=== PATIENT | male | born 1950 | race Caucasian/White ===

== ENCOUNTER 2017-04-06 08:00 | Outpatient (CLI) | payer OTHER ==
[2017-04-06 13:50] LABS: CHOL/HDL RATIO 4.1 (<5.0); CHOLESTEROL 254 mg/dL; HDL CHOLESTEROL 62 mg/dL; LDL/HDL RATIO 2.7 (<3.6); TRIGLYCERIDES 120 mg/dL; VLDL CHOLESTEROL 24 mg/dL
== END 2017-04-06 23:59 ==
LOC: LAB.R 08:00
PROVIDERS: ATTEND Internal Medicine
DX: Z00.00 Encounter for general adult medical examination without abnormal findings (principal); E78.2 Mixed hyperlipidemia; Z12.5 Encounter for screening for malignant neoplasm of prostate
CPT/HCPCS: 80061; 84153

== ENCOUNTER 2017-06-06 10:35 | Outpatient (CLI) | payer OTHER | END 2017-06-06 10:36 | disposition home or self-care (01) | LOC: SC 10:35 | PROVIDERS: ATTEND Internal Medicine Pulmonary Disease | DX: G47.30 Sleep apnea, unspecified (principal); R06.83 Snoring; R09.89 Other specified symptoms and signs involving the circulatory and respiratory systems | CPT/HCPCS: 99203; 99212 ==

== ENCOUNTER 2017-08-22 10:45 | Outpatient (CLI) | payer OTHER, MEDICARE | END 2017-08-22 10:46 | disposition home or self-care (01) | LOC: SC 10:45 | PROVIDERS: ATTEND Internal Medicine Pulmonary Disease | DX: G47.33 Obstructive sleep apnea (adult) (pediatric) (principal) | CPT/HCPCS: 99212; 99213 ==

== ENCOUNTER 2017-09-09 12:13 | Emergency (ER) | payer OTHER, MEDICARE ==
--- NOTE | 2017-09-09 13:29 | ED Physician Documentation ---
PD HPI LOWER EXT INJURY - Stated complaint Stated Complaint: LT CALF PX - Chief complaint Chief Complaint: Ext Problem - History obtained from History obtained from: Patient - History of Present Illness PD HPI LOW EXT INJURY LOCATION: Left, Calf Type of injury: Other (No injury) Where injury occurred: Home Timing - onset: Today Timing - details: Waxing and waning Associated symptoms: No: Weakness, Numbness, Swelling Similar symptoms before: Has not had sx before - Additional information Additional information: The patient is a 66-year-old male who presents with left calf pain. His pain started suddenly when up walking to the bathroom during the night. It improved with rest, but then nearly dropped him to his knees when trying to ambulate this morning. He denies any recent injury or long distance travel. He denies history of similar symptoms in the past. His pain is now much better than it was earlier this morning. He denies numbness or weakness. Review of Systems Constitutional: denies: Fever Nose: denies: Congestion Cardiac: denies: Chest pain / pressure, Palpitations Respiratory: denies: Dyspnea, Cough GI: denies: Abdominal Pain, Nausea, Vomiting Skin: denies: Rash Musculoskeletal: reports: Extremity pain (left calf). denies: Neck pain, Back pain Neurologic: denies: Focal weakness, Numbness, Headache PD PAST MEDICAL HISTORY - Past Medical History Past Medical History: Yes Cardiovascular: Murmur Respiratory: None Endocrine/Autoimmune: None GI: Colon polyps, Hemorrhoids : None HEENT: None Psych: None Musculoskeletal: None Derm: Other - Past Surgical History Past Surgical History: No General: Colonoscopy - Present Medications Home Medications: Ambulatory Orders Medication Instructions Recorded Confirmed Ibuprofen 1 tab PO Q6HR PRN 03/08/16 09/09/17 - Allergies Allergies/Adverse Reactions: Allergies Allergy/AdvReac Type Severity Reaction Status Date / Time Penicillins Allergy Anaphylaxis Verified 02/12/16 11:35 - Social History Does the pt smoke?: No Smoking Status: Never smoker Does the pt drink ETOH?: Yes Does the pt have substance abuse?: No - Immunizations Immunizations are current?: Yes - POLST Patient has POLST: No PD ED PE NORMAL - Vitals Vital signs reviewed: Yes (initially hypertensive.) - General General: Alert and oriented X 3, Well developed/nourished - HEENT HEENT: Atraumatic - Cardiac Cardiac: RRR, No murmur - Respiratory Respiratory: No respiratory distress, Clear bilaterally - Abdomen Abdomen: Soft, Non tender - Back Back: No CVA TTP - Derm Derm: No rash - Extremities Extremities: No edema, Other (There is mild tenderness to palpation along the medial aspect of the left calf, adjacent to the medial tibia. There is no appreciable swelling of the calf. Distal neurovascular is intact.) - Neuro Neuro: Alert and oriented X 3, No motor deficit, No sensory deficit Results - Vitals Vitals: Oxygen O2 Source Room air - Rads (name of study) Duplex U/S left LE Radiology: Prelim report reviewed, EMP read contemporaneously, See rad report ( No DVT) PD MEDICAL DECISION MAKING - ED course Complexity details: reviewed results, re-evaluated patient, considered differential, d/w patient, d/w family ED course: The patient's presentation is most consistent with muscle strain involving the left calf. Venous duplex ultrasound reveals no evidence of DVT. His examination does not suggest Gilbert's cyst. I discussed with him and his the results of the ultrasound, symptomatic treatment and outpatient follow-up, as well as potentially worrisome signs or symptoms that should prompt reevaluation in the emergency department. Departure - Departure Disposition: 01 Home, Self Care Clinical Impression: Pain of lower extremity Qualifiers: Laterality: left Qualified Code(s): M79.605 - Pain in left leg Condition: Stable Instructions: ED Muscle Pain Leg Cramps Follow-Up: Janes Bautista MD [Primary Care Provider] - Comments: Keep your left leg elevated as much the time as possible for the next 2 or 3 days. You can use ibuprofen, up to 800 mg 3 times daily for its anti-inflammatory effect. Follow up with your primary physician, or return to the emergency department if you develop increasing pain or swelling in her leg, or otherwise worsening symptoms. Discharge Date/Time: 09/09/17 15:31
[2017-09-09 15:32] VITALS: BP 144/85
--- NOTE | 2017-09-09 17:09 | Ultrasound Report ---
LEFT LEG VENOUS DUPLEX: 09/09/2017 CLINICAL INDICATION: Left calf pain. TECHNIQUE: Real-time sonographic vascular imaging was performed by the flower cutter through the left lower extremity utilizing both color flow and Doppler spectral analysis. Multiple passenger service representative sta tic images were saved for review. FINDINGS: A left lower extremity venous sonogram is performed revealing the common femoral, superfic ial femoral, profunda femoris, and popliteal veins to be adequately visualized without intraluminal d efects. There is normal venous compression, augmentation, phasicity, and spontaneity of venous flow. In the calf, the visualized more cephalad portions of posterior tibial and peroneal veins are gross ly compressible, without filling defects. IMPRESSION: NO EVIDENCE OF DEEP VENOUS THROMBOSIS. JOB #: [id number] EXT JOB #:[id number]
== END 2017-09-09 15:31 | disposition home or self-care (01) ==
LOC: ED 12:13
DX: M79.662 Pain in left lower leg (principal); Z86.010 Personal history of colon polyps
CPT/HCPCS: 99282; 99283

== ENCOUNTER 2017-10-24 09:26 | Outpatient (CLI) | payer OTHER, MEDICARE | END 2017-10-24 09:27 | disposition home or self-care (01) | LOC: SC 09:26 | PROVIDERS: ATTEND Internal Medicine Pulmonary Disease | DX: G47.33 Obstructive sleep apnea (adult) (pediatric) (principal) | CPT/HCPCS: 99212; 99213 ==

== ENCOUNTER 2017-11-28 13:23 | Outpatient (CLI) | payer OTHER, MEDICARE | END 2017-11-28 13:24 | disposition home or self-care (01) | LOC: SC 13:23 | PROVIDERS: ATTEND Internal Medicine Pulmonary Disease | DX: Z53.9 Procedure and treatment not carried out, unspecified reason (principal) ==

== ENCOUNTER 2017-12-05 13:50 | Outpatient (CLI) | payer MEDICARE, OTHER | END 2017-12-05 13:51 | disposition home or self-care (01) | LOC: SC 13:50 | PROVIDERS: ATTEND Internal Medicine Pulmonary Disease | DX: G47.33 Obstructive sleep apnea (adult) (pediatric) (principal) | CPT/HCPCS: 99213; G0463; 99212 ==

== ENCOUNTER 2018-05-10 10:31 | Outpatient (CLI) | payer MEDICARE, OTHER ==
[2018-05-10 11:17] LABS: ALBUMIN 4.3 g/dL (3.2-5.5); ALBUMIN/GLOBULIN RATIO 1.3 (1.0-2.2); ALKALINE PHOSPHATASE 66 IU/L (42-121); ALT ALANINE AMINOTRANSFERASE 23 IU/L (10-60); AST ASPARTATE AMINOTRANSFERASE 22 IU/L (10-42); BILIRUBIN,TOTAL 1.1 mg/dL (0.2-1.0); BUN - BLOOD UREA NITROGEN 23 mg/dL (6-20); CALCIUM 9.6 mg/dL (8.5-10.3); CARBON DIOXIDE - CO2 24 mmol/L (21-32); CHLORIDE 106 mmol/L (101-111); CHOL/HDL RATIO 3.9 (<5.0); CHOLESTEROL 228 mg/dL; CREATININE 0.9 mg/dL (0.6-1.2); GFR - MDRD 84 (>89); GLUCOSE 107 mg/dL (70-100); HDL CHOLESTEROL 58 mg/dL; LDL CHOLESTEROL,CALCULATED 148 mg/dL; LDL/HDL RATIO 2.6 (<3.6); SODIUM 139 mmol/L (135-145); TOTAL PROTEIN 7.5 g/dL (6.7-8.2); VLDL CHOLESTEROL 22 mg/dL
[2018-05-11 13:48] LABS: HEPATITIS C ANTIBODY NON-REACTIVE (NON-REACTIVE)
== END 2018-05-10 10:32 | disposition home or self-care (01) ==
LOC: LAB 10:31
PROVIDERS: ATTEND Internal Medicine
DX: Z72.89 Other problems related to lifestyle (principal); Z79.899 Other long term (current) drug therapy
CPT/HCPCS: 36415; 80053; 80061; 83721; 86803

== ENCOUNTER 2018-11-08 14:23 | Emergency (ER) | payer MEDICARE, OTHER ==
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
[2018-11-08] MEDS ORDERED: LIDOCAINE MPF 2%-EPI 1:200000 20 ML VIAL SUBQ STA (16:45)
[2018-11-08] MEDS ORDERED: IBUPROFEN 600 MG TABLET PO STA (16:45)
[2018-11-08] MEDS ORDERED: TETANUS/DIPHTHERIA/PERTUSSIS 0.5 ML SYRINGE IM ONE (16:46)
[2018-11-08 17:29] VITALS: BP 163/101
[2018-11-08] MEDS ORDERED: BACITRACIN OINT TOP ONE (17:32)
== END 2018-11-08 17:39 | disposition home or self-care (01) ==
LOC: ED 14:23
DX: S61.412A Laceration without foreign body of left hand, initial encounter (principal); W29.8XXA Contact with other powered hand tools and household machinery, initial encounter; Y92.009 Unspecified place in unspecified non-institutional (private) residence as the place of occurrence of the external cause
CPT/HCPCS: 12001; 90471; 99282; 99283

== ENCOUNTER 2018-11-15 14:33 | Outpatient (CLI) | payer MEDICARE, OTHER | END 2018-11-15 14:34 | disposition home or self-care (01) | LOC: SC 14:33 | PROVIDERS: ATTEND Nurse Practitioner Family | DX: G47.33 Obstructive sleep apnea (adult) (pediatric) (principal) | CPT/HCPCS: 99214; G0463; 99212 ==

== ENCOUNTER 2018-12-04 08:00 | Outpatient (CLI) | payer MEDICARE, OTHER ==
[2018-12-04 16:01] LABS: HB2 TOTAL 17.2 g/dL; HEMOGLOBIN A1C 0.52 g/dL; HEMOGLOBIN A1C % 4.9 % (4.6-6.2)
== END 2018-12-04 23:59 | disposition home or self-care (01) ==
LOC: LAB.R 08:00
PROVIDERS: ATTEND Internal Medicine
DX: E78.5 Hyperlipidemia, unspecified (principal); R73.9 Hyperglycemia, unspecified
CPT/HCPCS: 82947; 83036; 83615

== ENCOUNTER 2018-12-19 15:32 | Outpatient (CLI) | payer MEDICARE, OTHER ==
[2018-12-19 15:56] LABS: CREATININE 0.9 mg/dL (0.6-1.2)
== END 2018-12-19 15:33 | disposition home or self-care (01) ==
LOC: LAB 15:32
PROVIDERS: ATTEND Physician Assistant Medical
DX: B35.1 Tinea unguium (principal); Z79.899 Other long term (current) drug therapy
CPT/HCPCS: 36415; 82565; 84450; 84460

== ENCOUNTER 2019-07-27 11:57 | Outpatient (CLI) | payer MEDICARE, OTHER ==
[2019-07-27 12:38] LABS: ALBUMIN 4.4 g/dL (3.2-5.5); ALBUMIN/GLOBULIN RATIO 1.5 (1.0-2.2); ALKALINE PHOSPHATASE 62 IU/L (42-121); ALT ALANINE AMINOTRANSFERASE 37 IU/L (10-60); AST ASPARTATE AMINOTRANSFERASE 28 IU/L (10-42); BUN - BLOOD UREA NITROGEN 26 mg/dL (6-20); CALCIUM 9.3 mg/dL (8.5-10.3); CARBON DIOXIDE - CO2 24 mmol/L (21-32); CHLORIDE 106 mmol/L (101-111); CHOL/HDL RATIO 2.6 (<5.0); CHOLESTEROL 171 mg/dL; GFR - MDRD 75 (>89); GLUCOSE 113 mg/dL (70-100); HDL CHOLESTEROL 65 mg/dL; LDL CHOLESTEROL,CALCULATED 97 mg/dL; LDL/HDL RATIO 1.5 (<3.6); SODIUM 139 mmol/L (135-145); TOTAL PROTEIN 7.4 g/dL (6.7-8.2); VLDL CHOLESTEROL 9 mg/dL
== END 2019-07-27 11:58 | disposition home or self-care (01) ==
LOC: LAB 11:57
PROVIDERS: ATTEND Nurse Practitioner
DX: E78.5 Hyperlipidemia, unspecified (principal)
CPT/HCPCS: 36415; 80053; 80061; 83721

== ENCOUNTER 2019-10-23 13:22 | Outpatient (CLI) | payer MEDICARE, OTHER ==
[2019-10-23 14:10] VITALS: BP 156/80
--- NOTE | 2019-10-23 14:10 | SLEEP CARE CONSULTATION ---
Information from patient questionnaire entered by Elsa Austin. I have reviewed and concur with the information entered by Elsa Austin. This document represents the service I personally performed and the decisions made by me, Saida Mccullough, RN, MSN, CUSHION PADDER. History of Present Illness Previous diagnosis: Moderate, Obstructive Sleep Apnea-Hypopnea Syndrome AHI: 26.3 Reason for follow up: annual Accompanied by: Spouse Equipment type: CPAP Equipment obtained from: [facility] Mask style: Nasal Mask brand: Respironics Backup mask available: No (keep current mask as spare when replaced) Last cushion change: 2 weeks ago Prior sleep studies: Yes CPAP Compliance Data - Data Reviewed with Patient Average duration of nightly device use: 9h 2m Compliance rate %: 90.6 Current pressure setting (cmH2O): 12-16 Humidity settin Heated hose settin Average residual AHI: 4.1 Average large leak: 43s Subjective Missed days of use due to: reports: travel (no access to electricity ), other Patient concerns: reports: dry mouth, nose, throat (weekly ), other (oral venting noted nightly by spouse). denies: aerophagia, mask discomfort, air blowing in eyes, mask leak noise, condensation in mask/hose, nasal congestion, epistaxis Observed to snore while using device: No Current pressure setting perceived as: comfortable On therapy, patient: reports: sleeping better (as observed by spouse as well. ), more rested overall (slightly) Initial [place] Sleepiness Scale score: 12 Current [place] Sleepiness Scale score: 11 Allergies and Home Medications Known drug allergies: Yes (? penicillin) Home medication list reviewed: Yes Allergy and home medication list: Medication Name (generic/name brand) Strength & Dosage Ibuprofen 2 am and 2 pm Josephine 2 daily in morning. Stool softener 2 daily in AM rovastatin daily in AM Review of Systems Review of systems same as previous: Yes Physical Exam Blood Pressure: 156/80 Cuff size: long Heart Rate: 88 O2 Saturation: 96 Height: 6 ft 1 in Weight: 244 lb (with boots ) Body Mass Index: 32.1 BMI Classification: Obesity Class 1 Impression and Plan 1. Obstructive Sleep Apnea-Hypopnea Syndrome, moderate, with good treatment compliance and good apnea control. On CPAP therapy, the patient has better sleep quality noted by patient and spouse and is slightly rested overall. To reduce oral venting, I will change pressure to 90% of [id number]. Patient advised to cont act me if uncomfortable. I also ordered a chin strap if needed. In addition we talked about his weight. He has lost 4 pounds of the 20 he gained last year. We again reviewed weight relationship to his apnea risk and CPAP pressure. He is advised to lose weight for overall health as now BMI class 1 obesity at 32. Methods to achieve are diet modification to healthy content ( whole foods - reduction of refined foods) and portion control. Symptoms to report for pressure adjustment as he loses weight. Evidently he needs an updated order for his supplies and that was done. Patient's apnea severity and rationale for treatment to reduce apnea, improve sleep quality and reduce cardiovascular and cerebrovascular events was reviewed. I also reviewed the benefit of consistent device use of CPAP for hypertension. Since apnea more severe supine, if unable to use CPAP, he is to avoid supine sleep with pillow positioning. * * Change CPAP pressure to 14 cmH2O * chin strap fitting if continued oral venting * Update supplies * Notify me if snoring with mask or feeling that the pressure is too much or too little * Attempt to lose weight * Return for follow up in 1 year, or sooner if concerns arise I spent 100% of this 30 minute visit face to face with the patient with greater than 50% of this was spent time counseling the patient and coordination of care.
== END 2019-10-23 13:23 | disposition home or self-care (01) ==
LOC: SC 13:22
PROVIDERS: ATTEND Nurse Practitioner Family
DX: G47.33 Obstructive sleep apnea (adult) (pediatric) (principal); E66.9 Obesity, unspecified; Z68.32 Body mass index [BMI] 32.0-32.9, adult
CPT/HCPCS: 99214; G0463; 99212

== ENCOUNTER 2020-10-24 10:01 | Outpatient (CLI) | payer MEDICARE, OTHER ==
--- NOTE | 2020-10-24 09:51 | SLEEP CARE CONSULTATION ---
Information from patient questionnaire entered by Yadira Justin. I have reviewed and concur with the information entered by Yadira Justin. This document represents the service I personally performed and the decisions made by me, Saida Mccullough, RN, MSN, COMMERCIAL SALES MANAGER. History of Present Illness Service Date and Time: 10/24/2020929 Previous diagnosis: Moderate, Obstructive Sleep Apnea-Hypopnea Syndrome AHI: 26.3 (in 2017) Reason for follow up: annual (last seen 08/2019) Equipment type: CPAP Equipment obtained from: [facility] (getting supplies as needed) Mask style: Nasal Mask brand: Respironics Backup mask available: Yes (has old mask for spare ) Last cushion change: 2 days Prior sleep studies: Yes Year and Where: 2017 - [facility] Type of Sleep Study: Home sleep study CPAP Compliance Data - Data Reviewed with Patient Average duration of nightly device use: 7 hr 10 min Compliance rate %: 81.1 (180 days) Current pressure setting (cmH2O): 14 Humidity settin Heated hose settin Average residual AHI: 2.6 Average large leak: 4 min 56 sec Subjective Patient concerns: reports: dry mouth, nose, throat (occasional dry mouth at most once a week ). denies: aerophagia, mask discomfort, air blowing in eyes, mask leak noise, condensation in mask/hose, nasal congestion, epistaxis, other Observed to snore while using device: No Current pressure setting perceived as: comfortable On therapy, patient: reports: sleeping better, awakening more refreshed, being more awake and alert during the day, more rested overall. denies: drowsiness while driving Initial [place] Sleepiness Scale score: 12 (in 2017) Current [place] Sleepiness Scale score: 2 Allergies and Home Medications Known drug allergies: Yes Home medication list reviewed: No (no changes stated ) Review of Systems Review of systems same as previous: Yes (no changes stated) Physical Exam Height: 6 ft 1 in Impression and Plan 1. Obstructive Sleep Apnea-Hypopnea Syndrome, moderate, with good treatment compliance and good apnea control. On CPAP therapy, the patient has better sleep quality and is more rested overall. Patient is pleased with benefit of CPAP use. He was trying to lose weight at his last annual. But he is unaware of current weight. However, his spouse has commented she feels he is losing weight and his pants are now feeling looser. I discussed the risks of obesity and advised him to continue to lose weight. I discussed how significant weight loss could reduce his CPAP pressure requirements with rationale discussed. Symptoms to report to change CPAP pressure reviewed. Patient's apnea severity and rationale for treatment to reduce apnea, improve sleep quality and reduce cardiovascular and cerebrovascular events was reviewed. I also reviewed the benefit of consistent device use of CPAP for hypertension. Since patient has more severe apnea in govea pine position, patient advised to avoid supine sleep with pillow positioning if unable to use CPAP while ill or if without electricity to reduce apnea risk. * Continue auto CPAP pressure at 14 cmH2O * Notify me if snoring with mask or feeling that the pressure is too much or too little * Continue to lose weight * Call this office if any problems using CPAP * Return for follow up in 1 year , or sooner if concerns arise Visit Type: Telehealth Phone (using [employer]) Patient Location: Home Location of Provider: Home Patient agrees and consents to this telehealth visit type: Yes Patient agrees to have their insurance billed: Yes Time Spent with Patient (minutes): 12 Provider Statement: I spent 100% of the Telehealth Phone Call with the patient with greater than 50% spent counseling the patient and coordination of care.
== END 2020-10-24 10:02 | disposition home or self-care (01) ==
LOC: SC 10:01
PROVIDERS: ATTEND Nurse Practitioner Family
DX: G47.33 Obstructive sleep apnea (adult) (pediatric) (principal)

== ENCOUNTER 2021-03-04 11:31 | Outpatient (CLI) | payer MEDICARE, OTHER ==
[2021-03-04 11:52] LABS: BASOPHILS % (AUTO) 0.6 %; EOSINOPHILS # (AUTO) 0.2 10^3/uL (0.0-0.7); EOSINOPHILS % (AUTO) 2.9 %; HCT - HEMATOCRIT 44.9 % (42.0-52.0); HGB - HEMOGLOBIN 15.5 g/dL (14.0-18.0); LYMPHOCYTES # (AUTO) 1.5 10^3/uL (1.5-3.5); MEAN CORPUSCULAR HEMOGLOBIN 32.8 pg (27.0-31.0); MEAN CORPUSCULAR HGB CONC 34.5 g/dL (32.0-36.0); MEAN CORPUSCULAR VOLUME 94.9 fL (80.0-94.0); MEAN PLATELET VOLUME 8.7 fL (7.4-11.4); MONOCYTES # (AUTO) 0.4 10^3/uL (0.0-1.0); MONOCYTES % (AUTO) 6.5 %; NEUTROPHILS % (AUTO) 65.4 %; PLT - PLATELET COUNT 272 10^3/uL (130-450); RED BLOOD COUNT 4.73 10^6/uL (4.70-6.10); RED CELL DISTRIBUTION WIDTH 12.1 % (12.0-15.0); WHITE BLOOD COUNT 6.2 x10^3/uL (4.8-10.8)
[2021-03-04 12:31] LABS: ALBUMIN 4.6 g/dL (3.2-5.5); ALBUMIN/GLOBULIN RATIO 1.7 (1.0-2.2); ALKALINE PHOSPHATASE 60 IU/L (42-121); ALT ALANINE AMINOTRANSFERASE 36 IU/L (10-60); AST ASPARTATE AMINOTRANSFERASE 22 IU/L (10-42); BILIRUBIN,TOTAL 1.2 mg/dL (0.2-1.0); BUN - BLOOD UREA NITROGEN 25 mg/dL (6-20); CALCIUM 9.9 mg/dL (8.5-10.3); CARBON DIOXIDE - CO2 25 mmol/L (21-32); CHLORIDE 108 mmol/L (101-111); CHOL/HDL RATIO 2.9 (<5.0); CHOLESTEROL 171 mg/dL; CREATININE 0.9 mg/dL (0.6-1.2); GFR - MDRD 84 (>89); GLUCOSE 108 mg/dL (70-100); HDL CHOLESTEROL 59 mg/dL; LDL CHOLESTEROL,CALCULATED 93 mg/dL; LDL/HDL RATIO 1.6 (<3.6); MAGNESIUM 2.1 mg/dL (1.7-2.8); POTASSIUM 4.4 mmol/L (3.5-5.0); SODIUM 141 mmol/L (135-145); TOTAL PROTEIN 7.3 g/dL (6.7-8.2); TRIGLYCERIDES 93 mg/dL; VLDL CHOLESTEROL 19 mg/dL
== END 2021-03-04 11:32 | disposition home or self-care (01) ==
LOC: LAB 11:31
PROVIDERS: ATTEND Nurse Practitioner
DX: R73.9 Hyperglycemia, unspecified (principal); E78.5 Hyperlipidemia, unspecified; R03.0 Elevated blood-pressure reading, without diagnosis of hypertension; G47.33 Obstructive sleep apnea (adult) (pediatric); Z12.5 Encounter for screening for malignant neoplasm of prostate; R25.2 Cramp and spasm
CPT/HCPCS: 36415; 80053; 80061; 83735; 85025; G0103; 83721; 84153

== ENCOUNTER 2022-01-13 10:28 | Outpatient (CLI) | payer MEDICARE ==
[2022-01-13 10:46] LABS: BASOPHILS % (AUTO) 0.6 %; EOSINOPHILS # (AUTO) 0.1 10^3/uL (0.0-0.7); EOSINOPHILS % (AUTO) 2.7 %; HCT - HEMATOCRIT 43.9 % (42.0-52.0); HGB - HEMOGLOBIN 15.1 g/dL (14.0-18.0); LYMPHOCYTES # (AUTO) 1.3 10^3/uL (1.5-3.5); LYMPHOCYTES % (AUTO) 24.3 %; MEAN CORPUSCULAR HEMOGLOBIN 32.7 pg (27.0-31.0); MEAN CORPUSCULAR HGB CONC 34.4 g/dL (32.0-36.0); MEAN PLATELET VOLUME 8.5 fL (7.4-11.4); MONOCYTES # (AUTO) 0.4 10^3/uL (0.0-1.0); MONOCYTES % (AUTO) 7.8 %; NEUTROPHILS # (AUTO) 3.4 10^3/uL (1.5-6.6); NEUTROPHILS % (AUTO) 64.2 %; PLT - PLATELET COUNT 266 10^3/uL (130-450); RED BLOOD COUNT 4.62 10^6/uL (4.70-6.10); RED CELL DISTRIBUTION WIDTH 12.2 % (12.0-15.0); WHITE BLOOD COUNT 5.2 x10^3/uL (4.8-10.8)
[2022-01-13 11:06] LABS: ALBUMIN 4.2 g/dL (3.2-5.5); ALBUMIN/GLOBULIN RATIO 1.4 (1.0-2.2); ALKALINE PHOSPHATASE 65 IU/L (42-121); ALT ALANINE AMINOTRANSFERASE 39 IU/L (10-60); AST ASPARTATE AMINOTRANSFERASE 28 IU/L (10-42); BUN - BLOOD UREA NITROGEN 24 mg/dL (6-20); CALCIUM 9.1 mg/dL (8.5-10.3); CARBON DIOXIDE - CO2 25 mmol/L (21-32); CHLORIDE 105 mmol/L (101-111); CHOL/HDL RATIO 2.4 (<5.0); CHOLESTEROL 143 mg/dL; CREATININE 0.9 mg/dL (0.6-1.2); GFR - MDRD 83 (>89); GLUCOSE 105 mg/dL (70-100); HDL CHOLESTEROL 59 mg/dL; LDL CHOLESTEROL,CALCULATED 74 mg/dL; LDL/HDL RATIO 1.3 (<3.6); POTASSIUM 4.1 mmol/L (3.5-5.0); SODIUM 136 mmol/L (135-145); TOTAL PROTEIN 7.3 g/dL (6.7-8.2); TRIGLYCERIDES 50 mg/dL; VLDL CHOLESTEROL 10 mg/dL
[2022-01-13 11:19] LABS: ESTIMATED AVERAGE GLUCOSE 97 mg/dL (70-100)
== END 2022-01-13 10:29 | disposition home or self-care (01) ==
LOC: LAB 10:28
PROVIDERS: ATTEND Nurse Practitioner
DX: I10 Essential (primary) hypertension (principal); E78.5 Hyperlipidemia, unspecified; Z12.5 Encounter for screening for malignant neoplasm of prostate; Z68.29 Body mass index [BMI] 29.0-29.9, adult
CPT/HCPCS: 36415; 80053; 80061; 83036; 85025; G0103; 81001; 83721; 84153; 87086

== ENCOUNTER 2022-06-16 10:07 | Outpatient (CLI) | payer MEDICARE ==
[2022-06-16 10:41] VITALS: BP 132/78
--- NOTE | 2022-06-16 10:41 | SLEEP CARE CONSULTATION ---
Information from patient questionnaire entered by Marcos Vasquez MA. I have reviewed and concur with the information entered by Marcos Vasquez MA. This document represents the service I personally performed and the decisions made by , Vivian Green ARNP. History of Present Illness Service Date and Time: 06/16/2022 1007 Previous diagnosis: Moderate, Obstructive Sleep Apnea-Hypopnea Syndrome AHI: 26.3 (in 2017) Reason for follow up: annual ([facility], [facility]ES 08/29/2017, ) Equipment type: CPAP Equipment obtained from: Other ([facility]; getting supplies as needed) Mask style: Nasal pillows Backup mask available: Yes (old mask) Last cushion change: 1.5-2 weeks Prior sleep studies: Yes Year and Where: 2016 - [facility] Type of Sleep Study: Home sleep study HPI additional information: ALEX MYLES was diagnosed to have moderate, AHI 26.3, obstructive sleep apnea- hypopnea syndrome and returned today for CPAP therapy annual follow-up. Sleep Study - Results Type of Sleep Study: Home sleep study Prior sleep studies: Yes Year and Where: 2016 - [facility] CPAP Compliance Data - Data Reviewed with Patient Average duration of nightly device use: 8 HOURS 12 MINUTES Compliance rate %: 71.1 (02/04/22-05/04/22; 30 days 93.3 %) Current pressure setting (cmH2O): 14 Humidity settin Heated hose settin Average residual AHI: 2.7 Average large leak: 25 SECONDS Subjective Missed days of use due to: reports: travel Patient concerns: denies: aerophagia, mask discomfort, air blowing in eyes, mask leak noise, condensation in mask/hose, nasal congestion, dry mouth, nose, throat, epistaxis, other Observed to snore while using device: No Current pressure setting perceived as: comfortable On therapy, patient: reports: sleeping better, awakening more refreshed, being more awake and alert during the day, more rested overall. denies: drowsiness while driving Initial [place] Sleepiness Scale score: 12 (in 2017) Current [place] Sleepiness Scale score: 5 (06/16/22) Allergies and Home Medications Home medication list reviewed: Yes (no changes) Allergy and home medication list: Allergies Penicillins Allergy (Verified 11/08/18 14:42) Anaphylaxis Review of Systems Review of systems same as previous: Yes (no changes) Physical Exam Vital signs obtained and entered by: RIAN ORO Blood Pressure: 132/78 (RESP 18, PULSE 68, RIGHT) Heart Rate: 66 O2 Saturation: 97 Height: 6 ft 1 in Weight: 249 lb 3.2 oz (CLOTHES) Weight change since last visit: LOSING, GYM AND STAY ACTIVE Body Mass Index: 32.8 BMI Classification: Obese Impression and Plan 1. Obstructive Sleep Apnea-Hypopnea Syndrome, moderate, with good treatment compliance and good apnea control. On CPAP therapy, the patient has better sleep quality and is more rested overall. Patient denies problems with oral dryness, nasal congestion, epistaxis, skin irritation or aerophagia. Patient is due to update his device in August 2022. The patients CPAP is about 5 years old and of reasonable use. Thus, the CPAP will be updated. A DWO prescription will be made. Compliance guidelines for new device and follow up discussed. Patient's apnea severity and rationale for treatment to reduce apnea, improve sleep quality and reduce cardiovascular and cerebrovascular events was reviewed. I also reviewed the benefit of consistent device use of CPAP for hypertension. 2. Obesity, unspecified. Currently patients BMI is 32.8. Obesity increases the risk of apnea, CPAP pressure requirements and overall health risks especially cardiovascular and diabetes. Thus patient is advised to lose weight. Weight loss can be done with reducing portion size, reducing refined foods and balancing content with vegetables, fruit and whole grain foods. In addition, patient encouraged to get regular exercise. * Continue CPAP pressure at 14 cmH2O * Update CPAP * Update supplies as needed * Notify me if snoring with mask or feeling that the pressure is too much or too little * Attempt to lose weight * Call this office if any problems using CPAP * Return for follow up one month after obtaining new device, or sooner if concerns arise Counseling Topics: Spare mask, Weight loss health impact Visit Type: In Office Time Spent with Patient (minutes): 21 Provider Statement: I spent 100% of the Face to Face Visit with the patient with greater than 50% spent counseling the patient and coordination of care.
== END 2022-06-16 10:08 | disposition home or self-care (01) ==
LOC: SC 10:07
PROVIDERS: ATTEND Nurse Practitioner Family
DX: G47.33 Obstructive sleep apnea (adult) (pediatric) (principal); E66.9 Obesity, unspecified; Z68.32 Body mass index [BMI] 32.0-32.9, adult
CPT/HCPCS: 99213; G0463; 99212

== ENCOUNTER 2022-09-21 10:17 | Outpatient (CLI) | payer MEDICARE ==
[2022-09-21 10:49] VITALS: BP 140/100
--- NOTE | 2022-09-21 10:49 | SLEEP CARE CONSULTATION ---
Information from patient questionnaire entered by Chantel Antony. I have reviewed and concur with the information entered by Chantel Antony. This document represents the service I personally performed and the decisions made by me, Vivian Green ARNP. History of Present Illness Service Date and Time: 09/21/2022 1017 Previous diagnosis: Moderate, Obstructive Sleep Apnea-Hypopnea Syndrome AHI: 26.3 (in 2017) Reason for follow up: first compliance after device update, annual Accompanied by: Spouse Equipment type: CPAP (DREAMSTATION) Equipment obtained from: Other ([facility]; getting supplies as needed) Mask style: Nasal pillows Backup mask available: Yes (other mask) Last cushion change: 1 week Prior sleep studies: Yes Year and Where: 2016 - [facility] [employer] [employer] Type of Sleep Study: Home sleep study HPI additional information: ALEX MYLES was diagnosed to have moderate, AHI 26.3, obstructive sleep apnea- hypopnea syndrome and returned today for CPAP therapy first compliance after updating device/annual follow-up. Sleep Study - Results Type of Sleep Study: Home sleep study Prior sleep studies: Yes Year and Where: 2016 - [facility] [employer] CPAP Compliance Data - Data Reviewed with Patient Average duration of nightly device use: 9 hours 49 minutes Compliance rate %: 87.8 (36/41 days used) Current pressure setting (cmH2O): 14 Average residual AHI: 3.1 Central apnea: 1.5 Average large leak: 6.5 lpm Subjective Patient concerns: reports: aerophagia, mask leak noise (from top of tubing). denies: mask discomfort, air blowing in eyes, condensation in mask/hose, nasal congestion, dry mouth, nose, throat, epistaxis Observed to snore while using device: No Current pressure setting perceived as: comfortable On therapy, patient: reports: sleeping better, awakening more refreshed, being more awake and alert during the day, more rested overall. denies: drowsiness while driving Initial [place] Sleepiness Scale score: 12 (in 2017) Current [place] Sleepiness Scale score: 8 (09/21/2022) Allergies and Home Medications Drug allergies reviewed: Yes (penicillin) Home medication list reviewed: Yes (no changes) Review of Systems Review of systems same as previous: Yes (no changes) Physical Exam Vital signs obtained and entered by: CHANTEL C, MA Blood Pressure: 140/100 (left arm) Cuff size: regular Heart Rate: 88 O2 Saturation: 98 Height: 6 ft 1 in Weight: 250 lb Body Mass Index: 33.0 BMI Classification: Obese Impression and Plan 1. Obstructive Sleep Apnea-Hypopnea Syndrome, moderate, with good treatment compliance and good apnea control. On CPAP therapy, the patient has better sleep quality and is more rested overall. Patient received a Mercy CPAP and he feels the pressure is higher on the Mercy. He has been getting aerophagia and machine noise that is much louder than his last Dreamstation. To reduce symptoms of aerophagia, the CPAP pressure will be reduced to 13.5 cmH2O. Patient advised to contact me if this does not reduce symptoms or if pressure change uncomfortable. He also received his new Dreamstation 2 from [employer]. He is using this as he back up machine. He states if they cannot improve the noise on the new machine he will return the Mercy CPAP and just use his Dreamstation 2. Patient's apnea severity and rationale for treatment to reduce apnea, improve sleep quality and reduce cardiovascular and cerebrovascular events was reviewed. I also reviewed the benefit of consistent device use of CPAP for hypertension. 2. Obesity, unspecified. Currently patients BMI is 33.0. Obesity increases the risk of apnea, CPAP pressure requirements and overall health risks especially cardiovascular and diabetes. Thus patient is advised to lose weight. * Service machine for loud noise and pressure * Change CPAP pressure to 13.5 cmH2O * Notify me if snoring with mask or feeling that the pressure is too much or too little * Attempt to lose weight * Call this office if any problems using CPAP * Return for follow up in 1 year, or sooner if concerns arise Counseling Topics: Spare mask, Weight loss health impact Visit Type: In Office Other Participants: Spouse/Significant Other Time Spent with Patient (minutes): 21 Provider Statement: I spent 100% of the Face to Face Visit with the patient with greater than 50% spent counseling the patient and coordination of care.
== END 2022-09-21 10:18 | disposition home or self-care (01) ==
LOC: SC 10:17
PROVIDERS: ATTEND Nurse Practitioner Family
DX: G47.33 Obstructive sleep apnea (adult) (pediatric) (principal); E66.9 Obesity, unspecified; Z68.33 Body mass index [BMI] 33.0-33.9, adult
CPT/HCPCS: 99213; G0463; 99212

== ENCOUNTER 2023-01-07 10:37 | Outpatient (CLI) | payer MEDICARE ==
[2023-01-07 10:50] LABS: BASOPHILS # (AUTO) 0.1 10^3/uL (0.0-0.1); BASOPHILS % (AUTO) 0.6 %; EOSINOPHILS # (AUTO) 0.3 10^3/uL (0.0-0.7); HCT - HEMATOCRIT 48.6 % (42.0-52.0); HGB - HEMOGLOBIN 16.3 g/dL (14.0-18.0); LYMPHOCYTES % (AUTO) 23.2 %; MEAN CORPUSCULAR HEMOGLOBIN 31.7 pg (27.0-31.0); MEAN CORPUSCULAR HGB CONC 33.5 g/dL (32.0-36.0); MEAN CORPUSCULAR VOLUME 94.6 fL (80.0-94.0); MEAN PLATELET VOLUME 8.5 fL (7.4-11.4); MONOCYTES # (AUTO) 0.6 10^3/uL (0.0-1.0); NEUTROPHILS # (AUTO) 5.8 10^3/uL (1.5-6.6); NEUTROPHILS % (AUTO) 65.9 %; PLT - PLATELET COUNT 302 10^3/uL (130-450); RED BLOOD COUNT 5.14 10^6/uL (4.70-6.10); RED CELL DISTRIBUTION WIDTH 12.1 % (12.0-15.0); WHITE BLOOD COUNT 8.8 x10^3/uL (4.8-10.8)
[2023-01-07 11:12] LABS: ALBUMIN 4.4 g/dL (3.2-5.5); ALBUMIN/GLOBULIN RATIO 1.4 (1.0-2.2); ALKALINE PHOSPHATASE 67 IU/L (42-121); ALT ALANINE AMINOTRANSFERASE 34 IU/L (10-60); AST ASPARTATE AMINOTRANSFERASE 24 IU/L (10-42); BILIRUBIN,TOTAL 1.2 mg/dL (0.2-1.0); BUN - BLOOD UREA NITROGEN 22 mg/dL (6-20); CALCIUM 9.4 mg/dL (8.5-10.3); CARBON DIOXIDE - CO2 25 mmol/L (21-32); CHLORIDE 102 mmol/L (101-111); CHOL/HDL RATIO 2.9 (<5.0); CHOLESTEROL 163 mg/dL; GFR - MDRD 74 (>89); GLUCOSE 101 mg/dL (70-100); HDL CHOLESTEROL 57 mg/dL; LDL CHOLESTEROL,CALCULATED 84 mg/dL; LDL/HDL RATIO 1.5 (<3.6); POTASSIUM 4.2 mmol/L (3.5-5.0); SODIUM 135 mmol/L (135-145); TOTAL PROTEIN 7.5 g/dL (6.7-8.2); TRIGLYCERIDES 112 mg/dL; VLDL CHOLESTEROL 22 mg/dL
[2023-01-07 12:10] LABS: ESTIMATED AVERAGE GLUCOSE 97 mg/dL (70-100)
== END 2023-01-07 10:38 | disposition home or self-care (01) ==
LOC: LAB 10:37
PROVIDERS: ATTEND Nurse Practitioner
DX: I10 Essential (primary) hypertension (principal); E78.5 Hyperlipidemia, unspecified; R73.9 Hyperglycemia, unspecified
CPT/HCPCS: 36415; 80053; 80061; 83036; 83721; 85025

== ENCOUNTER 2023-11-29 10:31 | Outpatient (CLI) | payer MEDICARE ==
--- NOTE | 2023-11-29 11:21 | Sleep Patient Instructions ---
Sleep Center Visit Summary - Patient Visit Information Reason for Visit: Annual Visit - Patient Instructions Additional Instructions: You will continue with CPAP therapy with pressure set at 13.5 cmH2O. A supply prescription will be updated with your DME. Please bring in your machine for us to get the download of data for your compliance. We encourage you to continue to try to lose weight. Please follow up with the sleep care office in 1 year. - Clinic Information Contact: [facility] [address] [place] [id number] [email or web address] T: [phone]
--- NOTE | 2023-11-29 11:29 | SLEEP CARE CONSULTATION ---
Information from patient questionnaire entered by Chantel Antony. I have reviewed and concur with the information entered by Chantel Antony. This document represents the service I personally performed and the decisions made by me, Vivian Green ARNP. History of Present Illness Service Date and Time: 11/29/2023 1031 Previous diagnosis: Moderate, Obstructive Sleep Apnea-Hypopnea Syndrome AHI: 26.3 (in 2016) Reason for follow up: annual (LAST SEEN 09/2022) Accompanied by: Spouse (Nov) Equipment type: CPAP (Mercy machine; s/u 08/2022) Equipment obtained from: Other ([facility]; getting supplies as needed) Mask style: Nasal pillows Backup mask available: Yes Last cushion change: 2 weeks Prior sleep studies: Yes Year and Where: 2016 - [facility] [employer] Type of Sleep Study: Home sleep study HPI additional information: ALEX MYLES was diagnosed to have moderate, AHI 26.3, obstructive sleep apnea- hypopnea syndrome and returned today for CPAP therapy annual follow-up. Sleep Study - Results Type of Sleep Study: Home sleep study Prior sleep studies: Yes Year and Where: 2016 - [facility] [employer] CPAP Compliance Data Compliance data discussion: He says he is using the CPAP nightly for 7-9 hours. He brought in his SD card but not his machine. We were unable to get his data download for his compliance and therapy report. Subjective Patient concerns: denies: aerophagia, mask discomfort, air blowing in eyes, mask leak noise, condensation in mask/hose, nasal congestion, dry mouth, nose, throat, epistaxis Observed to snore while using device: No Current pressure setting perceived as: comfortable On therapy, patient: reports: sleeping better, awakening more refreshed, being more awake and alert during the day, more rested overall. denies: drowsiness while driving Initial [place] Sleepiness Scale score: 12 (in 2017) Current [place] Sleepiness Scale score: 3 (11/29/23) Allergies and Home Medications Known drug allergies: Yes (penicillins) Drug allergies reviewed: Yes Home medication list reviewed: Yes (no changes) Allergy and home medication list: Allergies Penicillins Allergy (Verified 11/24/23 16:36) Anaphylaxis Review of Systems Review of systems same as previous: Yes (NO CHANGE) Physical Exam Vital signs obtained and entered by: CHANTEL Sotelo MA Blood Pressure: 145/92 (LEFT ARM) Cuff size: regular Heart Rate: 85 O2 Saturation: 95 Height: 6 ft 1 in Weight: 245 lb 9.6 oz Body Mass Index: 32.3 BMI Classification: Obese Impression and Plan 1. Obstructive Sleep Apnea-Hypopnea Syndrome, moderate, with unknown treatment compliance and unknown apnea control. On CPAP therapy, the patient has better sleep quality and is more rested overall. Patient brought in the SD card from his machine but it did not contain any data on it. He is using his Mercy nightly for 7 to 8 hours at night and he states the machine is a lot quieter than it was at his last visit. He states he did not have it serviced to check it out as previously written. We are going to have to have his machine to get the eye covered off to see if we can get accurate data. What data we were able to get shows his machine set at 7-13 cmH2O but it should be set at 13.5 cmH2O. Patient states he can bring the machine in later today so that we can get the data we need. Once we have that data we will send a new prescription for supplies to his supplier. Patient's apnea severity and rationale for treatment to reduce apnea, improve sleep quality and reduce cardiovascular and cerebrovascular events was reviewed. I also reviewed the benefit of consistent device use of CPAP for hypertension. 2. Obesity, unspecified. Currently patients BMI is 32.3. Obesity increases the risk of apnea, CPAP pressure requirements and overall health risks especially cardiovascular and diabetes. Thus patient is advised to lose weight. * Continue CPAP pressure at 13.5 cmH2O * Patient to bring in Mercy machine for therapy data download * Update supply prescription * Notify me if snoring with mask or feeling that the pressure is too much or too little * Attempt to lose weight * Call this office if any problems using CPAP * Return for follow up in 12 months, or sooner if concerns arise Counseling Topics: Spare mask, Weight loss health impact Prescriptions: Device supplies Follow up with Sleep Care in: 1 year Visit Type: In Office Time Spent with Patient (minutes): 23 Provider Statement: I spent 100% of the Face to Face Visit with the patient with greater than 50% spent counseling the patient and coordination of care.
[2023-11-29 11:31] VITALS: BP 145/92; O2SAT 95
== END 2023-11-29 10:32 | disposition home or self-care (01) ==
LOC: SC 10:31
PROVIDERS: ATTEND Nurse Practitioner Family
DX: G47.33 Obstructive sleep apnea (adult) (pediatric) (principal); E66.9 Obesity, unspecified; Z68.32 Body mass index [BMI] 32.0-32.9, adult
CPT/HCPCS: 99213; G0463; 99212

== ENCOUNTER 2024-01-11 11:28 | Outpatient (CLI) | payer MEDICARE ==
[2024-01-11 11:44] LABS: BASOPHILS # (AUTO) 0.1 10^3/uL (0.0-0.1); BASOPHILS % (AUTO) 0.7 %; EOSINOPHILS # (AUTO) 0.4 10^3/uL (0.0-0.7); EOSINOPHILS % (AUTO) 5.8 %; HCT - HEMATOCRIT 45.3 % (42.0-52.0); HGB - HEMOGLOBIN 15.2 g/dL (14.0-18.0); LYMPHOCYTES % (AUTO) 29.3 %; MEAN CORPUSCULAR HEMOGLOBIN 32.1 pg (27.0-31.0); MEAN CORPUSCULAR HGB CONC 33.6 g/dL (32.0-36.0); MEAN CORPUSCULAR VOLUME 95.8 fL (80.0-94.0); MEAN PLATELET VOLUME 8.4 fL (7.4-11.4); MONOCYTES # (AUTO) 0.5 10^3/uL (0.0-1.0); MONOCYTES % (AUTO) 7.4 %; NEUTROPHILS # (AUTO) 3.9 10^3/uL (1.5-6.6); NEUTROPHILS % (AUTO) 56.5 %; PLT - PLATELET COUNT 262 10^3/uL (130-450); RED BLOOD COUNT 4.73 10^6/uL (4.70-6.10); RED CELL DISTRIBUTION WIDTH 12.4 % (12.0-15.0); WHITE BLOOD COUNT 6.9 x10^3/uL (4.8-10.8)
[2024-01-11 12:05] LABS: ALBUMIN 4.5 g/dL (3.2-5.5); ALBUMIN/GLOBULIN RATIO 1.7 (1.0-2.2); ALKALINE PHOSPHATASE 72 IU/L (42-121); ALT ALANINE AMINOTRANSFERASE 27 IU/L (10-60); AST ASPARTATE AMINOTRANSFERASE 19 IU/L (10-42); BILIRUBIN,TOTAL 1.3 mg/dL (0.2-1.0); BUN - BLOOD UREA NITROGEN 17 mg/dL (6-20); CALCIUM 9.6 mg/dL (8.5-10.3); CARBON DIOXIDE - CO2 28 mmol/L (21-32); CHLORIDE 107 mmol/L (101-111); CHOL/HDL RATIO 2.8 (<5.0); CHOLESTEROL 164 mg/dL; GFR - MDRD 73 (>89); GLUCOSE 104 mg/dL (74-104); HDL CHOLESTEROL 59 mg/dL; LDL CHOLESTEROL,CALCULATED 84 mg/dL; LDL/HDL RATIO 1.4 (<3.6); POTASSIUM 4.5 mmol/L (3.5-4.5); SODIUM 139 mmol/L (135-145); TOTAL PROTEIN 7.2 g/dL (6.4-8.9); TRIGLYCERIDES 106 mg/dL (48-352); VLDL CHOLESTEROL 21 mg/dL
[2024-01-11 20:01] LABS: ESTIMATED AVERAGE GLUCOSE 97 mg/dL (70-100)
== END 2024-01-11 11:29 | disposition home or self-care (01) ==
LOC: LAB 11:28
PROVIDERS: ATTEND Nurse Practitioner
DX: I10 Essential (primary) hypertension (principal); E78.5 Hyperlipidemia, unspecified; R73.9 Hyperglycemia, unspecified
CPT/HCPCS: 36415; 80053; 80061; 83036; 83721; 84153; 85025